=== PATIENT | female | born 1975 | race Caucasian/White ===

== ENCOUNTER 2018-05-13 17:24 | Emergency (ER) | payer OTHER ==
[2018-05-13 17:24] VITALS: BP 141/92
[~2018-05-13 17:24] MED LIST: BIRTH CONTROL; CORDROL20 MG PO; FLEXERIL10 MG PO; MOTRIN600 MG PO; MOTRIN800 MG PO; NAPROSYN500 MG PO; PREDNISONE5 MG PO; ULTRAM50 MG PO
[2018-05-13] MEDS ORDERED: FLONASE ALLERG9.9 ML NAS (18:47)
[2018-05-13] MEDS ORDERED: PROVENTIL HFA6.7 GM INH (18:54)
== END 2018-05-13 18:53 | disposition home or self-care (01) ==
LOC: ED 17:24
DX: J31.0 Chronic rhinitis (principal); J02.9 Acute pharyngitis, unspecified; Z88.0 Allergy status to penicillin; Z88.2 Allergy status to sulfonamides; Z88.8 Allergy status to other drugs, medicaments and biological substances

== ENCOUNTER 2018-12-07 10:56 | Emergency (ER) | payer OTHER ==
[~2018-12-07] VITALS: Ht 157.4 cm; Wt 57.6 kg
[~2018-12-07 10:56] MED LIST changes: +FLONASE ALLERG9.9 ML NAS; +PROVENTIL HFA6.7 GM INH
[2018-12-07 10:57] VITALS: BP 112/51
[2018-12-07 12:19] LABS: BASO # 0.1 10*3/uL (0.0-0.1); BASO % 0.8 % (0.0-1.0); EOS # 0.2 10*3/uL (0.0-0.4); EOS % 1.9 % (1.0-4.0); HEMOGLOBIN 12.8 g/dl (12.0-16.0); LYMPH # 1.5 10*3/uL (1.3-4.4); LYMPH % 14.1 % (27.0-41.0); MEAN CELL VOLUME 93.8 fl (81.0-99.0); MEAN CORPUSCULAR HGB 30.8 pg (27.0-31.0); MEAN CORPUSCULAR HGB CONC 32.8 g/dl (33.0-37.0); MEAN PLATELET VOLUME 9.9 fl (9.6-12.3); MONO # 0.8 10*3/uL (0.1-1.0); MONO % 7.7 % (3.0-9.0); NEUT % 74.8 % (47.0-73.0); PLATELET COUNT AUTOMATED 316 10*3/uL (130-400); RED BLOOD COUNT 4.16 10*6/uL (4.10-5.10); RED CELL DISTRI WIDTH 12.8 % (0-14.5); WHITE BLOOD COUNT 10.7 10*3/uL (4.8-10.8)
[2018-12-07 12:35] LABS: ALBUMIN 3.9 gm/dl (3.1-4.5); ALKALINE PHOSPHATASE 81 U/L (45-117); BUN 6 mg/dl (7-24); CHLORIDE 108 mmol/L (98-107); CREATININE 0.82 mg/dL (0.55-1.02); POTASSIUM 4.4 mmol/L (3.5-5.1); SGOT/AST 68 IU/L (3-35); SGPT/ALT 55 U/L (12-78); SODIUM 139 mmol/L (136-145)
== END 2018-12-07 14:22 | disposition home or self-care (01) ==
LOC: ED 10:56
PROVIDERS: Nurse Practitioner Family
DX: G89.18 Other acute postprocedural pain (principal); R10.11 Right upper quadrant pain; R10.13 Epigastric pain; R10.32 Left lower quadrant pain; M25.511 Pain in right shoulder; Z88.0 Allergy status to penicillin; Z88.2 Allergy status to sulfonamides; Z88.8 Allergy status to other drugs, medicaments and biological substances; Z90.49 Acquired absence of other specified parts of digestive tract

== ENCOUNTER 2019-04-29 19:11 | Emergency (ER) | payer OTHER ==
[2019-04-29 19:30] VITALS: BP 132/70
[2019-04-29 19:53] LABS: BASO % 0.2 % (0.0-1.0); HEMATOCRIT 41.5 % (37.0-47.0); HEMOGLOBIN 14.2 g/dl (12.0-16.0); LYMPH # 0.7 10*3/uL (1.3-4.4); LYMPH % 6.2 % (27.0-41.0); MEAN CELL VOLUME 87.9 fl (81.0-99.0); MEAN CORPUSCULAR HGB 30.1 pg (27.0-31.0); MEAN CORPUSCULAR HGB CONC 34.2 g/dl (33.0-37.0); MEAN PLATELET VOLUME 10.2 fl (9.6-12.3); MONO # 0.6 10*3/uL (0.1-1.0); MONO % 5.5 % (3.0-9.0); NEUT # 9.7 10*3/uL (2.3-7.9); NEUT % 87.8 % (47.0-73.0); PLATELET COUNT AUTOMATED 346 10*3/uL (130-400); RED BLOOD COUNT 4.72 10*6/uL (4.10-5.10); RED CELL DISTRI WIDTH 12.6 % (0-14.5)
[2019-04-29 20:08] LABS: ALBUMIN 3.9 gm/dl (3.1-4.5); ALKALINE PHOSPHATASE 114 U/L (45-117); BUN 11 mg/dl (7-24); CHLORIDE 109 mmol/L (98-107); CREATININE 0.84 mg/dL (0.55-1.02); POTASSIUM 3.2 mmol/L (3.5-5.1); SGOT/AST 34 IU/L (3-35); SGPT/ALT 111 U/L (12-78); SODIUM 138 mmol/L (136-145); TOTAL PROTEIN 7.2 gm/dL (6.4-8.2)
== END 2019-04-29 21:44 | disposition home or self-care (01) ==
LOC: ED 19:11
PROVIDERS: Emergency Medicine
DX: K52.9 Noninfective gastroenteritis and colitis, unspecified (principal); R11.2 Nausea with vomiting, unspecified; Z88.0 Allergy status to penicillin; Z88.2 Allergy status to sulfonamides; Z79.899 Other long term (current) drug therapy

== ENCOUNTER → 2019-05-22 | Outpatient (CLI) | payer OTHER | END | disposition home or self-care (01) | LOC: RAD 13:16 | DX: M54.5 Low back pain (principal); M54.6 Pain in thoracic spine ==

== ENCOUNTER 2024-03-09 07:54 | Emergency (ER) | payer OTHER ==
[~2024-03-09] VITALS: Ht 160 cm; Wt 59.0 kg
[2024-03-09 08:05] VITALS: BP 144/84
[2024-03-09] MEDS ORDERED: ACETAMINOPHEN 325 MG TAB PO ONE (08:10)
[2024-03-09] MEDS ORDERED: METHOCARBAMOL750 M1 PO (10:20)
== END 2024-03-09 10:23 | disposition home or self-care (01) ==
LOC: ED 07:54
DX: S16.1XXA Strain of muscle, fascia and tendon at neck level, initial encounter (principal); F41.9 Anxiety disorder, unspecified; F32.A Depression, unspecified; R51.9 Headache, unspecified; Z88.0 Allergy status to penicillin; Z88.2 Allergy status to sulfonamides; Z88.8 Allergy status to other drugs, medicaments and biological substances; Z98.890 Other specified postprocedural states; V49.40XA Driver injured in collision with unspecified motor vehicles in traffic accident, initial encounter; Y93.89 Activity, other specified; Y92.410 Unspecified street and highway as the place of occurrence of the external cause; Y99.8 Other external cause status